=== PATIENT | female | born 1985 | race African-American/Black ===

== ENCOUNTER 2016-08-06 06:18 | Emergency (ER) | payer BC ==
[~2016-08-06] VITALS: Ht 157.5 cm; Wt 83.9 kg
[~2016-08-06 06:18] MED LIST: ENOX40DI3 SQ; HYDR-2666 PO; IBUP-1060 PO; MAGN296S PO; ONDA4TAB7 PO; PREN1TAB27 PO
[2016-08-06 06:20] VITALS: BP 109/71
--- NOTE | 2016-08-06 06:38 | PHYS DOC ---
Past Medical History Past Medical History: IBS, Ovarian Cyst, Other Additional Past Medical Histor: TUBAL X 2, SUBCHORONIC BLEED POSTERIOR TO PLACENTA Past Surgical History: No Surgical History Additional Past Surgical Histo: PENIEL CYST IN BRAIN Alcohol Use: None Drug Use: None Adult General Chief Complaint Chief Complaint: ANKLE PROBLEM HPI HPI Patient is a 31 year old Female who presents with right ankle pain. She had a box fall on her right ankle this morning approximately an hour prior to arrival. She states it hurts so bad she can't bear weight on it. She is not taking anything for the discomfort yet she just immediately had her carry her to the emergency department. Review of Systems Review of Systems Constitutional: Denies fever or chills [] Eyes: Denies change in visual acuity, redness, or eye pain [] HENT: Denies nasal congestion or sore throat [] Respiratory: Denies cough or shortness of breath [] Cardiovascular: No additional information not addressed in HPI [] GI: Denies abdominal pain, nausea, vomiting, bloody stools or diarrhea [] : Denies dysuria or hematuria [] Musculoskeletal: Denies back pain, positive for right ankle and foot pain Integument: Denies rash or skin lesions [] Neurologic: Denies headache, focal weakness or sensory changes [] Endocrine: Denies polyuria or polydipsia [] Current Medications Current Medications Current Medications Medications (Trade) Dose Ordered Sig/[facility] Start Time Stop Time Status Last Admin Dose Admin Acetaminophen/ Hydrocodone Bitart (Lortab 5/325) 2 tab 1X ONCE 08/06/16 07:00 08/06/16 07:01 DC 08/06/16 06:58 2 TAB Allergies Allergies Allergies Coded Allergies Type Severity Reaction Last Updated Verified No Known Drug Allergies 08/24/13 No Physical Exam Physical Exam Constitutional: Well developed, well nourished, no acute distress, non-toxic appearance. [] HENT: Normocephalic, atraumatic, bilateral external ears normal, oropharynx moist, no oral exudates, nose normal. [] Eyes: PERRLA, EOMI, conjunctiva normal, no discharge. [] Neck: Normal range of motion, no tenderness, supple, no stridor. [] Cardiovascular:Heart rate regular rhythm, no murmur [] Lungs & Thorax: Bilateral breath sounds clear to auscultation [] Abdomen: Bowel sounds normal, soft, no tenderness, no masses, no pulsatile masses. [] Skin: Warm, dry, no erythema, no rash. [] Back: No tenderness, no CVA tenderness. [] Extremities: Palpation of the right lateral malleolus and dorsum of the right foot, no cyanosis, no clubbing, ROM intact, no edema. [] Neurologic: Alert and oriented X 3, normal motor function, normal sensory function, no focal deficits noted. [] Psychologic: Affect normal, judgement normal, mood normal. [] Current Patient Data Vital Signs Vital Signs Date Time Temp Pulse Resp B/P Pulse Ox O2 Delivery O2 Flow Rate FiO2 08/06/16 06:58 98 Room Air 08/06/16 06:20 98.1 92 20 98.1 EKG EKG [] Radiology/Procedures Radiology/Procedures [facility] [address] [place] [address] IMAGING REPORT Signed PATIENT: NICK CARTWRIGHT ACCOUNT: [id number] : 1985 LOCATION: ER AGE: 31 SEX: F EXAM [id number] STATUS: REG ER ORD. PHYSICIAN: WILLIAM SEE MD REASON: pain over lateral malleous PROCEDURE: ANKLE RIGHT 3V; FOOT RIGHT 2V Right ankle, 3 views, 08/06/2016: History: Pain, injury No acute fracture or dislocation is identified. A well-defined bony density at the tip of the lateral malleolus appears old. IMPRESSION: No acute right ankle abnormality is detected. Right foot, 2 views, 08/06/2016: No fracture or dislocation is identified. There is minimal spurring at the talonavicular articulation. IMPRESSION: No acute bony abnormality is detected. DICTATED and SIGNED BY: DANAE REYES MD DATE: 08/06/16 0704 CC: WILLIAM SEE MD; TONY VERMA Jr, MD ~ Impressions: Right foot, ankle contusion Course & Med Decision Making Course & Med Decision Making Pertinent Labs and Imaging studies reviewed. (See chart for details) X-rays right foot and right ankle nonacute. We'll discharge with [place], crutches patient is to follow-up with orthostatic not better within 4-5 days. Return precautions given. She is agreeable plan being discharge in stable condition. Dragon Disclaimer Dragon Disclaimer This electronic medical record was generated, in whole or in part, using a voice recognition dictation system. Departure Departure Impression: Primary Impression: Ankle contusion Disposition: HOME, SELF-CARE Condition: STABLE Referrals: ALLA BELLO MD Patient Instructions: Foot Contusion, [id number] Additional Instructions: The x-ray did not show anything broken of your foot or ankle. He can take [place] as instructed for pain. [place] is a narcotic pain medicines a please do not regular car while taking it as it can impair judgment making sleepy. You can use crutches as needed. You should start feeling better over the next several days. If over 4-5 days or no better you will need to follow-up with orthopedic surgery. Please call their office to schedule an appointment. You can return back to emergency department for worsening pain, swelling or other concerns. Scripts Hydrocodone/Apap 5-325 ([place] 5-325 Tablet)1 Each Tablet1-2 Tab PO Q4-6HRS #14 TAB Prov:WILLIAM SEE MD 08/06/16 WILLIAM SEE MD Aug 06, 2016 06:38
[2016-08-06] MEDS ORDERED: HYDROCODONE/APAP 5/325MG TABLET. PO ONE (07:00)
--- NOTE | 2016-08-06 07:09 | RAD ---
Right ankle, 3 views, 08/06/2016: History: Pain, injury No acute fracture or dislocation is identified. A well-defined bony density at the tip of the lateral malleolus appears old. IMPRESSION: No acute right ankle abnormality is detected. Right foot, 2 views, 08/06/2016: No fracture or dislocation is identified. There is minimal spurring at the talonavicular articulation. IMPRESSION: No acute bony abnormality is detected.
[2016-08-06] MEDS ORDERED: HYDR-971 PO (07:17)
== END 2016-08-06 07:30 | disposition home or self-care (01) ==
LOC: ER 06:18
DX: S90.01XA Contusion of right ankle, initial encounter (principal); W20.8XXA Other cause of strike by thrown, projected or falling object, initial encounter; Y93.89 Activity, other specified; Y92.89 Other specified places as the place of occurrence of the external cause; Y99.8 Other external cause status
CPT/HCPCS: 73610; 73620; 99284

== ENCOUNTER 2016-12-08 07:52 | Emergency (ER) | payer BC ==
[~2016-12-08] VITALS: Ht 157.5 cm; Wt 83.9 kg
[~2016-12-08 07:52] MED LIST changes: -HYDR-2666 PO; +HYDR-2758 PO; +HYDR-971 PO; -MAGN296S PO; +MAGN296S9 PO
[2016-12-08 08:04] VITALS: BP 116/76
--- NOTE | 2016-12-08 08:07 | PHYS DOC ---
Past Medical History Past Medical History: IBS, Ovarian Cyst, Other Additional Past Medical Histor: TUBAL X 2, SUBCHORONIC BLEED POSTERIOR TO PLACENTA Past Surgical History: No Surgical History Additional Past Surgical Histo: PENIEL CYST IN BRAIN Alcohol Use: None Drug Use: None Adult General Chief Complaint Chief Complaint: SHORTNESS OF BREATH HPI HPI Patient is a 31 year old female with history of IBS and ovarian cyst who presents today with shortness of breath coughing, bilateral ear pain and nasal congestion that began a couple days ago. Patient denies any fever. Review of Systems Review of Systems Constitutional: see HPI Eyes: Denies change in visual acuity, redness, or eye pain [] HENT: nasal congestion and sore throat [] Respiratory: cough and shortness of breath [] Cardiovascular: No additional information not addressed in HPI [] GI: Denies abdominal pain, nausea, vomiting, bloody stools or diarrhea [] : Denies dysuria or hematuria [] Musculoskeletal: Denies back pain or joint pain [] Integument: Denies rash or skin lesions [] Neurologic: Denies headache, focal weakness or sensory changes [] Endocrine: Denies polyuria or polydipsia [] Current Medications Current Medications Current Medications Medications (Trade) Dose Ordered Sig/[facility] Start Time Stop Time Status Last Admin Dose Admin Albuterol/ Ipratropium (Duoneb) 3 ml 1X ONCE 12/08/16 08:15 12/08/16 08:16 DC 12/08/16 08:10 3 ML Prednisone (Prednisone) 60 mg 1X ONCE 12/08/16 08:15 12/08/16 08:16 DC 12/08/16 08:21 60 MG Allergies Allergies Allergies Coded Allergies Type Severity Reaction Last Updated Verified No Known Drug Allergies 08/24/13 No Physical Exam Physical Exam Constitutional: Well developed, well nourished, no acute distress, non-toxic appearance. [] HENT: Normocephalic, atraumatic, bilateral external ears normal, oropharynx moist, no oral exudates, nose normal. [] Eyes: PERRLA, EOMI, conjunctiva normal, no discharge. [] Neck: Normal range of motion, no tenderness, supple, no stridor. [] Cardiovascular:Heart rate regular rhythm, no murmur [] Lungs & Thorax: Wheezing noted to left upper lung lobe as well as bilateral upper lung lobes. Abdomen: Bowel sounds normal, soft, no tenderness, no masses, no pulsatile masses. [] Skin: Warm, dry, no erythema, no rash. [] Back: No tenderness, no CVA tenderness. [] Extremities: No tenderness, no cyanosis, no clubbing, ROM intact, no edema. [] Neurologic: Alert and oriented X 3, normal motor function, normal sensory function, no focal deficits noted. [] Psychologic: Affect normal, judgement normal, mood normal. [] Current Patient Data Vital Signs Vital Signs Date Time Temp Pulse Resp B/P (MAP) Pulse Ox O2 Delivery O2 Flow Rate FiO2 12/08/16 08:12 Room Air 12/08/16 08:04 98.4 100 18 100 98.4 EKG EKG [] Radiology/Procedures Radiology/Procedures []PROCEDURE: CHEST PA & LATERAL Indication cough chest tightness wheezing congestion shortness of air. Frontal and lateral views of the chest were obtained. No prior imaging of the chest is available. The heart and pulmonary vessels appear normal. The lungs are clear. There is no pleural fluid or pneumothorax. The visualized bony structures appear grossly intact. IMPRESSION: No acute or focal process seen in the chest DICTATED and SIGNED BY: ROWAN BENZ MD DATE: 12/08/16 0844 CC: CRISTINA LOOMIS APRN; TONY VERMA Jr, MD ~ Course & Med Decision Making Course & Med Decision Making Pertinent Labs and Imaging studies reviewed. (See chart for details) Patient is in the ED with complaints of coughing, shortness of breath, bilateral ear pain, sore throat. She was wheezing on arrival to the ED. Given a DuoNeb treatment and prednisone. Chest x-ray interpreted by radiologist is negative for any acute findings. Patient's symptoms are viral. Her lungs have cleared up. Discharged with albuterol inhaler, prednisone for 5 days, Tessalon Perles, Flonase, and ibuprofen. Instructed to follow-up with the PCP in 1-2 weeks. Provided return precautions and discharged in stable condition. Dragon Disclaimer Dragon Disclaimer This electronic medical record was generated, in whole or in part, using a voice recognition dictation system. Departure Departure Impression: Primary Impression: Upper respiratory infection Additional Impressions: Viral pharyngitis Bronchitis, acute Otalgia of both ears Disposition: HOME, SELF-CARE Condition: STABLE Referrals: TONY VERMA Jr, MD (PCP) Follow-up with the primary care doctor in 1-2 weeks Patient Instructions: Acute Bronchitis, [id number], Upper Respiratory Infection, Adult, Viral Pharyngitis Additional Instructions: You were seen with symptoms consistent with a viral illness. Take the prescribed medicines as ordered. Follow-up with your doctor in 1-2 weeks. Come back to the ED symptoms worsen. Scripts Fluticasone Propionate (Flonase Allergy Relief) 9.9 Ml [place].susp 2 SPRAYS NS DAILY, #1 BOTTLE Prov: CRISTINA LOOMIS APRN 12/08/16 Benzonatate (TESSALON PERLE) 100 Mg Capsule 1 CAP PO TID, #30 CAP Prov: CRISTINA LOOMIS APRN 12/08/16 Prednisone (PREDNISONE) 50 Mg Tablet 1 TAB PO DAILY, #5 TAB Prov: CRISTINA LOOMIS APRN 12/08/16 Albuterol Sulfate (Proair Respiclick) 90 Mcg Aer.pow.ba 1 PUFF IH PRN Q6HRS Y for SHORTNESS OF BREATH, #1 INHALER Prov: CRISTINA LOOMIS APRN 12/08/16 Problem Qualifiers Primary Impression: Upper respiratory infection URI type: unspecified URI Qualified Codes: J06.9 - Acute upper respiratory infection, unspecified Additional Impressions: Bronchitis, acute Bronchitis organism: unspecified organism Qualified Codes: J20.9 - Acute bronchitis, unspecified CRISTINA LOOMIS APRN Dec 08, 2016 08:07
[2016-12-08] MEDS ORDERED: predniSONE 20 MG TABLET PO ONE (08:15)
[2016-12-08] MEDS ORDERED: IPRATRPIUM/ALBUTEROL 0.5/2.5MG 3 ML NEBU. NEB ONE (08:15)
--- NOTE | 2016-12-08 08:48 | RAD ---
Indication cough chest tightness wheezing congestion shortness of air. Frontal and lateral views of the chest were obtained. No prior imaging of the chest is available. The heart and pulmonary vessels appear normal. The lungs are clear. There is no pleural fluid or pneumothorax. The visualized bony structures appear grossly intact. IMPRESSION: No acute or focal process seen in the chest
[2016-12-08] MEDS ORDERED: FLUT9.9S NS (09:18)
[2016-12-08] MEDS ORDERED: PROAIR RESPICL90 MCG IH (09:18)
[2016-12-08] MEDS ORDERED: BENZ100C PO (09:18)
[2016-12-08] MEDS ORDERED: PRED50TA PO (09:18)
[2016-12-08 10:32] LABS: NEGATIVE OBC STREP NEG; POSITIVE OBC STREP POS
== END 2016-12-08 09:38 | disposition home or self-care (01) ==
LOC: ER 07:52
DX: J20.9 Acute bronchitis, unspecified (principal); J06.9 Acute upper respiratory infection, unspecified; J02.8 Acute pharyngitis due to other specified organisms; B97.89 Other viral agents as the cause of diseases classified elsewhere; H92.03 Otalgia, bilateral; K58.9 Irritable bowel syndrome, unspecified
CPT/HCPCS: 71020; 87070; 87880; 94250; 94640; 99285; J7512; J7620

== ENCOUNTER 2016-12-13 19:51 | Emergency (ER) | payer BC ==
[~2016-12-13] VITALS: Ht 157.5 cm; Wt 83.9 kg
[~2016-12-13 19:51] MED LIST changes: +BENZ100C PO; +FLUT9.9S NS; +PRED50TA PO; +PROAIR RESPICL90 MCG IH
[2016-12-13 20:35] VITALS: BP 113/85
--- NOTE | 2016-12-13 20:56 | PHYS DOC ---
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 She states that she was using some machine tonight when the needle went through her right ring finger. She states that it did that a multiple times. Patient states she had difficulty trying to get the bleeding stopped. She states that this happened around 5:30 tonight. She states that she is on aspirin only. Patient states her last tetanus immunization was approximately one year ago. Patient denies any numbness or tingling to the tip of the finger. She denies taken anything for pain or discomfort. Patient states that she is right-hand dominant. Review of Systems Review of Systems Constitutional: Denies fever or chills [] Eyes: Denies change in visual acuity, redness, or eye pain [] HENT: Denies nasal congestion or sore throat [] Respiratory: Denies cough or shortness of breath [] Cardiovascular: No additional information not addressed in HPI [] GI: Denies abdominal pain, nausea, vomiting, bloody stools or diarrhea [] : Denies dysuria or hematuria [] Musculoskeletal: Denies back pain or joint pain [] Integument: Denies rash or skin lesions. Complaint of puncture wounds to the right ring finger. Neurologic: Denies headache, focal weakness or sensory changes [] Endocrine: Denies polyuria or polydipsia [] Current Medications Current Medications Current Medications Medications (Trade) Dose Ordered Sig/[facility] Start Time Stop Time Status Last Admin Dose Admin Acetaminophen/ Hydrocodone Bitart (Lortab 5/325) 1 tab 1X ONCE 12/13/16 21:15 12/13/16 21:16 DC 12/13/16 21:08 1 TAB Lidocaine/Sodium Bicarbonate (Buffered Lidocaine 1%) 20 ml 1X ONCE 12/13/16 21:15 12/13/16 21:16 DC 12/13/16 21:08 20 ML Allergies Allergies Allergies Coded Allergies Type Severity Reaction Last Updated Verified No Known Drug Allergies 08/24/13 No Physical Exam Physical Exam Constitutional: Well developed, well nourished, no acute distress, non-toxic appearance. [] HENT: Normocephalic, atraumatic, bilateral external ears normal, oropharynx moist, no oral exudates, nose normal. [] Eyes: PERRLA, EOMI, conjunctiva normal, no discharge. [] Neck: Normal range of motion, no tenderness, supple, no stridor. [] Cardiovascular:Heart rate regular rhythm Lungs & Thorax: No respiratory distress noted Skin: Warm, dry, no erythema, no rash. Puncture wounds noted to the right ring finger and the nail and nail bed area. Bleeding is currently controlled at this time. Patient does have good sensation to the tip of the finger. Back: No tenderness Extremities: No tenderness, no cyanosis, no clubbing, ROM intact, no edema. [] Neurologic: Alert and oriented X 3, normal motor function, normal sensory function, no focal deficits noted. [] Psychologic: Affect normal, judgement normal, mood normal. [] Current Patient Data Vital Signs Vital Signs Date Time Temp Pulse Resp B/P (MAP) Pulse Ox O2 Delivery O2 Flow Rate FiO2 12/13/16 21:08 20 100 12/13/16 20:35 98.4 65 Room Air 98.4 EKG EKG [] Radiology/Procedures Radiology/Procedures [] Course & Med Decision Making Course & Med Decision Making Pertinent Labs and Imaging studies reviewed. (See chart for details) X-rays were negative for any bony abnormalities, no foreign bodies noted in the finger. Site was injected with 2 mL of lidocaine 1% buffered. Patient's finger was soaked in Betadine. She does have a V-shaped area that appears to be avulsed in the nail. This avulsion is towards the base of the the nail. She will be provided with a Steri-Strip over the area once soaking his been completed. She was provided with signs and symptoms of infections and signs symptoms to return back to emergency department. Patient agrees with discharge instructions treatment regimens and follow-up recommendations. Dragon Disclaimer Dragon Disclaimer This electronic medical record was generated, in whole or in part, using a voice recognition dictation system. Departure Departure Impression: Primary Impression: Puncture wound of right ring finger without foreign body with damage to nail Disposition: 01 HOME, SELF-CARE Condition: STABLE Referrals: TONY VERMA Jr, MD (PCP) Patient Instructions: Puncture Wound, [id number] Additional Instructions: Your x-rays were negative for any bony abnormalities. No foreign bodies was noted in the finger. Tylenol or ibuprofen for pain and discomfort. Ice packs on 20 minutes off 20 minutes several times a day. Elevation as much as possible. Keep the area clean and dry. Clean the site twice day with soap and water and apply antibiotic ointment. Watch for signs and symptoms of infection: Redness, warmth, tenderness or any yellow/greenish drainage of a come from the site if this should occur you may do follow-up to primary care physician immediately. Otherwise follow-up to primary care physician as needed. Return back to emergency prior signs and symptoms of become worse KALEB LOYD APRN Dec 13, 2016 20:55
[2016-12-13] MEDS ORDERED: LIDOCAINE 1% / SOD BICARB 8.4% 20 ML VIAL. IJ ONE (21:15)
[2016-12-13] MEDS ORDERED: HYDROcodone/APAP 5/325MG 1 TAB TABLET PO ONE (21:15)
--- NOTE | 2016-12-14 07:15 | RAD ---
Indication: Injury to the right fourth finger. Time of exam 2112 hours. 3 views of the right hand were obtained. The metacarpals appear intact. The phalanges are intact. No fractures are seen. No definite radiopaque soft tissue foreign body is detected. Impression: No acute feature identified.
== END 2016-12-13 22:02 | disposition home or self-care (01) ==
LOC: ER 20:01
DX: S61.234A Puncture wound without foreign body of right ring finger without damage to nail, initial encounter (principal); E28.2 Polycystic ovarian syndrome; Z79.82 Long term (current) use of aspirin; Y28.8XXA Contact with other sharp object, undetermined intent, initial encounter; Y93.D2 Activity, sewing; Y99.8 Other external cause status; Y92.89 Other specified places as the place of occurrence of the external cause
CPT/HCPCS: 11730; 73140; 99284-25; 99285-25

== ENCOUNTER 2017-05-22 15:31 | Emergency (ER) | payer BC ==
[~2017-05-22] VITALS: Ht 157.5 cm; Wt 84.4 kg
[2017-05-22] MEDS ORDERED: IV NORMAL SALINE 1000ML BAG 1,000 ML IV SCH (16:11)
[2017-05-22] MEDS ORDERED: ONDANSETRON PF 4 MG/2 ML VIAL. IV ONE (16:15)
[2017-05-22] MEDS ORDERED: 0.9 % SODIUM CHLORIDE 10 ML DISP.SYRIN. IV PRN (16:15)
[2017-05-22] MEDS: HYDROmorphone 2 MG/ML VIAL IV/SQ PRN ×2 (16:18→17:04)
[2017-05-22 16:22] LABS: BILIRUBIN,URINE NEGATIVE (NEG); GLUCOSE,URINE NEGATIVE (NEG); NITRITE,URINE NEGATIVE (NEG); PH,URINE 5.5; PROTEIN,URINE NEGATIVE (NEG-TRACE); UROBILINOGEN,URINE 0.2 mg/dL (0.2 mg/dL)
[2017-05-22 16:22] LABS: BASO # 0.1 x10^3/uL (0.0-0.2); BASO % 1 % (0-3); EOS % 3 % (0-3); HEMATOCRIT 40.9 % (36.0-47.0); HEMOGLOBIN 13.6 g/dL (12.0-15.5); LYMPH % 29 % (24-48); MEAN CORPUSCULAR HEMOGLOBIN 30 pg (25-35); MEAN CORPUSCULAR HGB CONC 33 g/dL (31-37); MEAN CORPUSCULAR VOLUME 90 fL (79-100); MONO % 6 % (0-9); NEUT % 61 % (31-73); PLATELET COUNT 366 x10^3/uL (140-400); RED BLOOD COUNT 4.54 x10^6/uL (3.50-5.40); RED CELL DISTRIBUTION WIDTH 13.3 % (11.5-14.5); WHITE BLOOD COUNT 10.2 x10^3/uL (4.0-11.0)
[2017-05-22 16:31] LABS: BACTERIA,URINE MANY /HPF (0-FEW); RBC,URINE 0 /HPF (0-2); SQUAMOUS EPITHELIAL CELL,UR MANY /LPF
--- NOTE | 2017-05-22 16:32 | PHYS DOC ---
Past Medical History Past Medical History: Ovarian Cyst, Other Additional Past Medical Histor: AFLIB, PCOS, PENNEAL GLAND CYST, UMBILICAL HERNIA Past Surgical History: No Surgical History Additional Past Surgical Histo: PENIEL CYST IN BRAIN Alcohol Use: None Drug Use: None Adult General Chief Complaint Chief Complaint: ABDOMINAL PAIN HPI HPI She is a pleasant 31 year-old female with a known history and umbilical hernia presents with progressive abdominal pain after being struck in an umbilical hernia earlier today by her child. Patient was in sabianism today when he was she was attempting to mushroom picker her 3-year-old child who throwing a temper tantrum on the floor when the child kicked her in the abdomen around the area since that time patient's increasing localized pain around the vocal hernia with a localized swelling. Patient denies any vomiting, diarrhea, UTI symptoms but has had some nausea. She denies any recent travel outside the country, antibiotics, fevers, chills, back pain or possibly being . Patient is to note pain is not radiating to the back or to the chest. Patient's pain is worse with direct pressure over the abdominal umbilical hernia. Review of Systems Review of Systems Constitutional: Denies fever or chills [] Eyes: Denies change in visual acuity, redness, or eye pain [] HENT: Denies nasal congestion or sore throat [] Respiratory: Denies cough or shortness of breath [] Cardiovascular: No additional information not addressed in HPI [] GI: She mainly complains of abdominal pain with umbilical hernia with nausea but no vomiting no diarrhea no bloody stools or constipation. : Denies dysuria or hematuria [] Musculoskeletal: Denies back pain or joint pain [] Integument: Denies rash or skin lesions [] Neurologic: Denies headache, focal weakness or sensory changes [] Endocrine: Denies polyuria or polydipsia [] All other systems were reviewed and found to be within normal limits, except as documented in this note. Current Medications Current Medications Current Medications Medications (Trade) Dose Ordered Sig/Olivia Start Time Stop Time Status Last Admin Dose Admin Hydromorphone HCl (Dilaudid) 1 mg PRN Q15MIN PRN 05/22/17 16:15 05/23/17 16:14 05/22/17 17:04 1 MG Ondansetron HCl (Zofran) 4 mg 1X ONCE 05/22/17 16:15 05/22/17 16:16 DC 05/22/17 16:17 4 MG Sodium Chloride (Normal Saline Flush) 10 ml QSHIFT PRN 05/22/17 16:15 05/22/17 16:17 10 ML Allergies Allergies Allergies Coded Allergies Type Severity Reaction Last Updated Verified No Known Drug Allergies 08/24/13 No Physical Exam Physical Exam Vital signs located and recorded on the patient's chart there within normal limits. Constitutional: Well developed, well nourished, no acute distress, non-toxic appearance. [] HENT: Normocephalic, atraumatic, bilateral external ears normal, oropharynx moist, no oral exudates, nose normal. [] Eyes: PERRLA, EOMI, conjunctiva normal, no discharge. [] Neck: Normal range of motion, no tenderness, supple, no stridor. [] Cardiovascular:Heart rate regular rhythm, no murmur [] Lungs & Thorax: Bilateral breath sounds clear to auscultation [] Abdomen: Bowel sounds normal, soft, she has a mildly distended abdomen she is mildly obese there is tenderness around the umbilical hernia seems soft and easily reducible. Patient has no evidence of Loredo Min sign, no Nelson's or McBurney's point tenderness palpation on physical exam. Patient has no pulsatile masses noted. Skin: Warm, dry, no erythema, no rash. [] Back: No tenderness, no CVA tenderness. [] Extremities: No tenderness, no cyanosis, no clubbing, ROM intact, no edema. [] Neurologic: Alert and oriented X 3, normal motor function, normal sensory function, no focal deficits noted. [] Psychologic: She does seem somewhat anxious on exam but is consolable. Current Patient Data Vital Signs Vital Signs Date Time Temp Pulse Resp B/P (MAP) Pulse Ox O2 Delivery O2 Flow Rate FiO2 05/22/17 17:31 75 19 106/67 (80) 99 Room Air 05/22/17 15:51 98.0 98.0 Lab Values Laboratory Tests Test 05/22/17 15:40 05/22/17 15:49 05/22/17 15:53 Urine Collection Type Unknown Urine Color Dk yellow Urine Clarity Clear Urine pH 5.5 Urine Specific Naches >=1.030 Urine Protein Negative mg/dL (NEG-TRACE) Urine Glucose (UA) Negative mg/dL (NEG) Urine Ketones (Stick) >=80 mg/dL (NEG) Urine Blood Negative (NEG) Urine Nitrite Negative (NEG) Urine Bilirubin Negative (NEG) Urine Urobilinogen Dipstick 0.2 mg/dL (0.2 mg/dL) Urine Leukocyte Esterase Negative (NEG) Urine RBC 0 /HPF (0-2) Urine WBC 1-4 /HPF (0-4) Urine Squamous Epithelial Cells Many /LPF Urine Bacteria Many /HPF (0-FEW) Urine Mucus Marked /LPF POC Urine HCG, Qualitative Hcg negative (Negative) White Blood Count 10.2 x10^3/uL (4.0-11.0) Red Blood Count 4.54 x10^6/uL (3.50-5.40) Hemoglobin 13.6 g/dL (12.0-15.5) Hematocrit 40.9 % (36.0-47.0) Mean Corpuscular Volume 90 fL (79-100) Mean Corpuscular Hemoglobin 30 pg (25-35) Mean Corpuscular Hemoglobin Concent 33 g/dL (31-37) Red Cell Distribution Width 13.3 % (11.5-14.5) Platelet Count 366 x10^3/uL (140-400) Neutrophils (%) (Auto) 61 % (31-73) Lymphocytes (%) (Auto) 29 % (24-48) Monocytes (%) (Auto) 6 % (0-9) Eosinophils (%) (Auto) 3 % (0-3) Basophils (%) (Auto) 1 % (0-3) Neutrophils # (Auto) 6.2 x10^3uL (1.8-7.7) Lymphocytes # (Auto) 3.0 x10^3/uL (1.0-4.8) Monocytes # (Auto) 0.6 x10^3/uL (0.0-1.1) Eosinophils # (Auto) 0.3 x10^3/uL (0.0-0.7) Basophils # (Auto) 0.1 x10^3/uL (0.0-0.2) Sodium Level 139 mmol/L (136-145) Potassium Level 3.6 mmol/L (3.5-5.1) Chloride Level 103 mmol/L (98-107) Carbon Dioxide Level 25 mmol/L (21-32) Anion Gap 11 (6-14) Blood Urea Nitrogen 13 mg/dL (7-20) Creatinine 0.7 mg/dL (0.6-1.0) Estimated GFR (Cockcroft-Gault) 116.6 Glucose Level 111 mg/dL (70-99) H Calcium Level 9.4 mg/dL (8.5-10.1) Total Bilirubin 0.9 mg/dL (0.2-1.0) Direct Bilirubin 0.2 mg/dL (0.0-0.2) Aspartate Amino Transferase (AST) 25 U/L (15-37) Alanine Aminotransferase (ALT) 48 U/L (14-59) Alkaline Phosphatase 65 U/L (46-116) Total Protein 8.1 g/dL (6.4-8.2) Albumin 4.3 g/dL (3.4-5.0) Laboratory Tests 05/22/17 15:53 Laboratory Tests 05/22/17 15:53 EKG EKG [] Radiology/Procedures Radiology/Procedures [] IMAGING REPORT Signed PATIENT: NICK CARTWRIGHT ACCOUNT: [id number] : 1985 LOCATION: ER AGE: 31 SEX: F EXAM STATUS: REG ER ORD. PHYSICIAN: JOHNSON GARCIA MD REASON: abdominal pain PROCEDURE: CT ABDOMEN PELVIS WO CONTRAST CT Abdomen; CT Pelvis without contrast Clinical Indication: Abdominal pain, umbilical hernia COMPARISON: CT abdomen pelvis dated 04/29/2017 TECHNIQUE: Multiple contiguous axial images were obtained throughout the abdomen, and pelvis without the use of IV contrast. Axial images were reformatted into coronal and sagittal planes. FINDINGS: Abdomen findings: Evaluation of solid abdominal viscera is limited without the use of IV contrast. However, the liver, gallbladder spleen, pancreas, and adrenal glands are unremarkable. Unchanged punctate nonobstructive left renal calculi. The kidneys are otherwise unremarkable. No hydronephrosis. There is no significant mesenteric or retroperitoneal adenopathy identified, though evaluation is limited without intravenous contrast. There is no evidence of free intraperitoneal fluid or pneumoperitoneum. Visualized portions of the bowel are grossly unremarkable. Normal appendix. Pelvis findings: The bladder is underdistended limiting evaluation. Normal uterus and ovaries. There is no significant pelvic ascites. No significant iliac or inguinal adenopathy is identified. No acute osseous abnormality. No significant change in small fat-containing periumbilical hernia. IMPRESSION: 1. Unchanged nonobstructive punctate left renal calculi. No obstructive uropathy. 2. Unchanged small fat-containing periumbilical hernia. PQRS Compliance Statement: One or more of the following individualized dose reduction techniques were utilized for this examination: 1. Automated exposure control 2. Adjustment of the mA and/or kV according to patient size 3. Use of iterative reconstruction technique Electronically signed by: Erickson Michaels MD (05/22/2017 5:39 PM) [facility] [id number] DICTATED and SIGNED BY: ERICKSON MICHAELS MD DATE: 05/22/17 6535 CC: JOHNSON GARCIA MD; NO PCP ~ Course & Med Decision Making Course & Med Decision Making Pertinent Labs and Imaging studies reviewed. (See chart for details) []My abdominal pain differential includes but not limited to ectopic , UTI, pyonephritis, cholecystitis, cholelithiasis, pancreatitis, appendicitis, small bowel obstruction, large bowel obstruction, diverticulosis, Diverticulum, intussusception, volvulus, irritable bowel disease, incarcerated hernia, Crohn' s or ulcerative colitis, considered upon arrival Time is now 5 PM patient is resting completely waiting the results of her CAT scan. Patient tells me that their symptoms given during CC are improved. We reviewed labs and radiology reports with patient at bedside. It is now 6 PM I reviewed the CAT scan with the patient the bedside has no evidence of incarceration or entrapment of her hernia. There is some mild fat within the hernia itself but no evidence of fat stranding or evidence of inflammation. There is no other intra-abdominal pathology causing her symptoms. Patient's CBC, CMP and urinalysis are unremarkable. Patient's urinalysis is considerably Contaminant with epithelial cells and she is asymptomatic when he comes to UTI symptoms. Dragon Disclaimer Dragon Disclaimer This electronic medical record was generated, in whole or in part, using a voice recognition dictation system. Departure Departure Impression: Primary Impression: Abdominal pain Additional Impressions: Umbilical hernia Abdominal wall contusion Disposition: HOME, SELF-CARE Referrals: NO PCP (PCP) Patient Instructions: Abdominal Pain, Prolapse of the Umbilical Cord Additional Instructions: discharge: I've spoken with the patient and/or caregivers. I've explained the patient's condition, diagnosis and treatment plan based on information available to me at this time. I've answered the patient's and/or caregivers questions and addressed any concerns. The patient and/or caregivers have a good understanding the patient's diagnosis, condition and treatment plan as can be expected at this point. Vital signs have been stabilized. The patient's condition is stable for discharge from the emergency department. The patient will pursue further outpatient evaluation with her primary care provider or other designated consulting physician as outlined in the discharge instructions. Patient and/or caregivers are agreeable to this plan of care and follow-up instructions have been explained in detail. The patient and/or caregivers have received these instructions in written format and expressed understanding of these discharge instructions. The patient and her caregivers are aware that if any significant change in condition or worsening of symptoms should prompt him to immediately return to this of the closest emergency department. If an emergent department is not readily available I would encourage him to call 911. Scripts Hydrocodone Bit/Acetaminophen (HYDROCODONE-APAP 5-325 ) 1 Each Tablet 1-2 TAB PO PRN Q6HRS Y for PAIN for 5 Days, #10 TAB 0 Refills Prov: JOHNSON GARCIA MD 05/22/17 Problem Qualifiers JOHNSON GARCIA MD May 22, 2017 16:32
[2017-05-22 16:33] LABS: CALCIUM 9.4 mg/dL (8.5-10.1); CREATININE 0.7 mg/dL (0.6-1.0); GFR 116.6; POTASSIUM 3.6 mmol/L (3.5-5.1)
[2017-05-22 16:39] LABS: ALBUMIN 4.3 g/dL (3.4-5.0); DIRECT BILIRUBIN 0.2 mg/dL (0.0-0.2); TOTAL BILIRUBIN 0.9 mg/dL (0.2-1.0); TOTAL PROTEIN 8.1 g/dL (6.4-8.2)
[2017-05-22 17:31] VITALS: BP 106/67
--- NOTE | 2017-05-22 17:42 | RAD ---
CT Abdomen; CT Pelvis without contrast Clinical Indication: Abdominal pain, umbilical hernia COMPARISON: CT abdomen pelvis dated 04/29/2017 TECHNIQUE: Multiple contiguous axial images were obtained throughout the abdomen, and pelvis without the use of IV contrast. Axial images were reformatted into coronal and sagittal planes. FINDINGS: Abdomen findings: Evaluation of solid abdominal viscera is limited without the use of IV contrast. However, the liver, gallbladder spleen, pancreas, and adrenal glands are unremarkable. Unchanged punctate nonobstructive left renal calculi. The kidneys are otherwise unremarkable. No hydronephrosis. There is no significant mesenteric or retroperitoneal adenopathy identified, though evaluation is limited without intravenous contrast. There is no evidence of free intraperitoneal fluid or pneumoperitoneum. Visualized portions of the bowel are grossly unremarkable. Normal appendix. Pelvis findings: The bladder is underdistended limiting evaluation. Normal uterus and ovaries. There is no significant pelvic ascites. No significant iliac or inguinal adenopathy is identified. No acute osseous abnormality. No significant change in small fat-containing periumbilical hernia. IMPRESSION: 1. Unchanged nonobstructive punctate left renal calculi. No obstructive uropathy. 2. Unchanged small fat-containing periumbilical hernia. PQRS Compliance Statement: One or more of the following individualized dose reduction techniques were utilized for this examination: 1. Automated exposure control 2. Adjustment of the mA and/or kV according to patient size 3. Use of iterative reconstruction technique Electronically signed by: Erickson Michaels MD (05/22/2017 5:39 PM) [facility]
[2017-05-22] MEDS ORDERED: HYDR-2758 PO (18:03)
== END 2017-05-22 18:11 | disposition home or self-care (01) ==
LOC: ER 15:31
DX: S30.1XXA Contusion of abdominal wall, initial encounter (principal); K42.9 Umbilical hernia without obstruction or gangrene; E28.2 Polycystic ovarian syndrome; W50.0XXA Accidental hit or strike by another person, initial encounter; Y93.89 Activity, other specified; Y92.22 Religious institution as the place of occurrence of the external cause; Y99.8 Other external cause status
CPT/HCPCS: 36415; 74176; 80048; 80076; 81001; 81025; 85025; 87086; 96361; 96374; 96375; 96376; 99285; J1170; J2405; J7030; 96372

== ENCOUNTER 2017-06-01 08:03 | Day surgery (SDC) | payer BC ==
[~2017-06-01] VITALS: Ht 157.5 cm; Wt 82.6 kg
[~2017-06-01 08:03] MED LIST changes: +HYDROmorphone 2 MG/ML VIAL IV PRN; +IV RINGERS,LACTATED 1000ML 1,000 ML IV SCH; +LIDOCAINE 1% PF 2 ML VIAL. ID PRN; +MORPHINE SULFATE 2 MG/ML DISP.SYRIN. IV PRN; +ONDANSETRON PF 4 MG/2 ML VIAL. IV PRN; +PROCHLORPERAZINE 10 MG/2 ML VIAL. IV PRN; +ceFAZolin 2GM PREMIX 2 GM/50 ML BAG IV ONE; +fentaNYL PF VIAL 100 MCG/2 ML VIAL IV PRN
[2017-06-01 08:30] LABS: NEG OBC UR NEG; POS OBC UR POS
[2017-06-01 08:51] LABS: BASO # 0.1 x10^3/uL (0.0-0.2); BASO % 1 % (0-3); EOS % 4 % (0-3); HEMATOCRIT 41.2 % (36.0-47.0); HEMOGLOBIN 13.6 g/dL (12.0-15.5); LYMPH # 1.8 x10^3/uL (1.0-4.8); LYMPH % 22 % (24-48); MEAN CORPUSCULAR HEMOGLOBIN 30 pg (25-35); MEAN CORPUSCULAR HGB CONC 33 g/dL (31-37); MEAN CORPUSCULAR VOLUME 90 fL (79-100); MONO % 10 % (0-9); NEUT % 63 % (31-73); PLATELET COUNT 326 x10^3/uL (140-400); RED BLOOD COUNT 4.57 x10^6/uL (3.50-5.40); RED CELL DISTRIBUTION WIDTH 13.3 % (11.5-14.5); WHITE BLOOD COUNT 8.2 x10^3/uL (4.0-11.0)
[2017-06-01 08:57] LABS: ALBUMIN 4.2 g/dL (3.4-5.0); CALCIUM 8.5 mg/dL (8.5-10.1); CREATININE 0.8 mg/dL (0.6-1.0); POTASSIUM 4.1 mmol/L (3.5-5.1)
[2017-06-01] MEDS ORDERED: fentaNYL PF VIAL 100 MCG/2 ML VIAL ONE (09:38)
[2017-06-01] MEDS ORDERED: PROPOFOL 20 ML IV ONE (09:38)
[2017-06-01] MEDS ORDERED: ONDANSETRON PF 4 MG/2 ML VIAL. ONE (09:38)
[2017-06-01] MEDS ORDERED: ROCURONIUM 50 MG/5 ML VIAL. ONE (09:38)
[2017-06-01] MEDS ORDERED: MIDAZOLAM HCL/PF 2 MG/2 ML VIAL. ONE (09:38)
[2017-06-01] MEDS ORDERED: LIDOCAINE 2% PF Vial for OR 5 ML VIAL. ONE (09:38)
[2017-06-01] MEDS ORDERED: SEVOFLURANE 61 TO 120 MINUTES. IH ONE (09:39)
[2017-06-01] MEDS ORDERED: KETOROLAC 30 MG/ML INJ FOR OR. INJ ONE (09:39)
[2017-06-01] MEDS ORDERED: BUPIVACAINE MPF 0.5% 30 ML VIAL. ONE (10:50)
--- NOTE | 2017-06-01 11:48 | PDOC ---
BRIEF OPERATIVE NOTE Date: Jun 01, 2017 Pre-Op Diagnosis incarcerated umbilical hernia Post-Op Diagnosis same Procedure Performed primary repair Surgeon Loi Anesthesia Type: General Blood Loss 25cc IV Fluid 850cc Specimens Obtained hernia sack Findings incarcerated fat through a small defect Complications none PETEY ESPINOSA MD Jun 01, 2017 11:48
--- NOTE | 2017-06-01 11:49 | DISCH ---
DISCHARGE INSTRUCTIONS Condition on Discharge Condition on Discharge: Stable Activity After Discharge Activity Instructions for Disc: Activity as tolerated, Avoid exertion Lifting Instructions after Dis: No heavy lifting Diet after Discharge Diet after Discharge: Regular Wound Incision Care Wound/Incision Care: Ice to area for comfort Other wound/incision instructi: abdominal binderportia shower Tuesday Follow-Up Follow up with: malachi Monsivais LEE V MD Jun 01, 2017 11:49
[2017-06-01] MEDS ORDERED: OXYC-323 PO (12:13)
[2017-06-01] MEDS ORDERED: SENN1TAB70 PO (12:14)
[2017-06-01] MEDS ORDERED: oxyCODONE/APAP 5/325 1 TAB TABLET ONE (12:19)
[2017-06-01] MEDS ORDERED: oxyCODONE/APAP 5/325 1 TAB TABLET PO ONE (12:30)
[2017-06-01 13:08] VITALS: BP 103/62
--- NOTE | 2017-06-02 12:40 | OP ---
DATE OF SURGERY: 06/01/2017 PREOPERATIVE DIAGNOSIS: Incarcerated umbilical hernia. POSTOPERATIVE DIAGNOSIS: Incarcerated umbilical hernia. PROCEDURE: Primary repair. SURGEON: Steven Espinosa MD. ANESTHESIA: General. ESTIMATED BLOOD LOSS: 25 mL. INTRAVENOUS FLUID: 850 mL. INDICATIONS: The patient is a 31-year-old with pain and fullness in the umbilical area here for repair. DESCRIPTION OF PROCEDURE: The patient brought to the operating suite, given a general anesthetic and the abdomen was prepped and draped in usual sterile fashion. An infraumbilical incision was infiltrated with 0.5% Marcaine plain, incised and dissection carried down to the anterior sheath. The hernia was encircled and a Darell drain placed around it. The umbilical skin was reflected off the hernia and the incarcerated contents were reduced. Hernia sac was excised. The small fascial defect was repaired with interrupted inverted [id number] 0 PDS sutures. A second row of 0 Vicryl was placed to reinforce the repair. Wound was checked for hemostasis and when present and a correct sponge count was obtained. The umbilical skin was tacked to the underlying repair with 3-0 Vicryl. SubQ approximated with 3-0 Vicryl, skin closed with a subcuticular 4-0 Monocryl. Steri-Strips and sterile dressing applied. The patient awakened from her anesthetic, placed in an abdominal binder and taken to the postoperative area in stable condition. STEVEN ESPINOSA MD DR: DEBBY/lester JOB#: [id number] / [id number]
--- NOTE | 2017-06-02 16:50 | PATHOLOGY ---
PATHOLOGY REPORT * * * * * * * * FINAL DIAGNOSIS: Segment of mesothelial-lined fibromembranous and fibroadipose tissue, umbilical hernia repair: - Hernia sac. (JPM:[email or web address]; 06/02/2017) REPORT ELECTRONICALLY SIGNED BY: Gumaro Thorpe M.D. DATE/TIME: 06/02/2017 16:49 * * * * * * * * GROSS PATHOLOGY: Received in formalin labeled "Yudith Cartwright, umbilical hernia," is a piece of fibromembranous tissue measuring 3.4 x 2.2 x 1.5 cm. No nodules or lesions are identified. Neonatal Icu Coordinator tissue is submitted in cassette A1. (TSD; 06/01/2017) INITIAL CPT CODE(S): A; 84085 Professional services performed by [facility] [place] [address] Technical services performed by [facility] at [address] [place] [address]. SPECIMEN(S) RECEIVED: A.Umbilical hernia sac CLINICAL HISTORY: Incarcerated umbilical hernia PATIENT: YUDITH CARTWRIGHT /AGE: 12 1985 (Age: 31) PATIENT #: [id number] ALT CASE #: SPECIMEN COLLECTION DATE: 06/01/2017 SPECIMEN RECEIVED DATE: 06/01/2017 [facility] - [address] [place] [address] - PHONE: [phone] * * * END OF REPORT * * *
== END 2017-06-01 13:13 | disposition home or self-care (01) ==
LOC: SURG 08:03 → MERGE 10:15 → SURG 13:13
PROVIDERS: ATTEND Surgery
DX: K42.0 Umbilical hernia with obstruction, without gangrene (principal); I95.9 Hypotension, unspecified; E66.9 Obesity, unspecified; Z68.33 Body mass index [BMI] 33.0-33.9, adult; D27.9 Benign neoplasm of unspecified ovary; M19.90 Unspecified osteoarthritis, unspecified site
CPT/HCPCS: 36415; 49587; 80048; 81025; 82040; 85025; C1769; J0690; J0780; J1885; J2250; J2405; J2704; J3010; J3490; 88302; J2001

== ENCOUNTER 2017-12-05 14:08 | Emergency (ER) | payer OTHER, BC ==
[2017-12-05] MEDS: predniSONE 10 MG TABLET PO (14:36)
[2017-12-05] MEDS: HYDROcodone/APAP 5/325MG 1 TAB TABLET PO (14:37)
== END 2017-12-05 15:31 | disposition home or self-care (01) ==
LOC: ER 14:08
DX: M77.8 Other enthesopathies, not elsewhere classified (principal); I48.91 Unspecified atrial fibrillation
CPT/HCPCS: 93971; 99284-25; J7512

== ENCOUNTER 2018-06-07 19:53 | Observation (INO) | payer BC ==
[~2018-06-07] VITALS: Ht 157.5 cm; Wt 87.5 kg
[~2018-06-07 19:53] MED LIST changes: +ACET325T9 PO; +ASPI-630 PO; +DOCU-109 PO; -HYDR-2758 PO; +HYDR-2761 PO; +HYDR-3164 PO; -HYDR-971 PO; -HYDROmorphone 2 MG/ML VIAL IV PRN; +IBUP-1027 PO; -IV RINGERS,LACTATED 1000ML 1,000 ML IV SCH; -LIDOCAINE 1% PF 2 ML VIAL. ID PRN; +METH-37 PO; -MORPHINE SULFATE 2 MG/ML DISP.SYRIN. IV PRN; -ONDANSETRON PF 4 MG/2 ML VIAL. IV PRN; +OXYC1TAB15 PO; +PRED20TA PO; -PROCHLORPERAZINE 10 MG/2 ML VIAL. IV PRN; +SENN1TAB70 PO; +TRAM50TA PO; -ceFAZolin 2GM PREMIX 2 GM/50 ML BAG IV ONE; -fentaNYL PF VIAL 100 MCG/2 ML VIAL IV PRN
[2018-06-07] MEDS ORDERED: MORPHINE SULFATE 10 MG/ML VIAL. IM ONE (20:15)
[2018-06-07] MEDS ORDERED: ONDANSETRON PF 4 MG/2 ML VIAL. IV ONE (20:15)
[2018-06-07 20:25] LABS: BASO # 0.1 x10^3/uL (0.0-0.2); BASO % 1 % (0-3); EOS # 0.9 x10^3/uL (0.0-0.7); EOS % 10 % (0-3); HEMATOCRIT 33.8 % (36.0-47.0); HEMOGLOBIN 11.4 g/dL (12.0-15.5); LYMPH # 2.5 x10^3/uL (1.0-4.8); LYMPH % 28 % (24-48); MEAN CORPUSCULAR HEMOGLOBIN 31 pg (25-35); MEAN CORPUSCULAR HGB CONC 34 g/dL (31-37); MEAN CORPUSCULAR VOLUME 91 fL (79-100); MONO # 0.6 x10^3/uL (0.0-1.1); MONO % 7 % (0-9); NEUT # 4.9 x10^3uL (1.8-7.7); NEUT % 54 % (31-73); PLATELET COUNT 372 x10^3/uL (140-400); RED BLOOD COUNT 3.72 x10^6/uL (3.50-5.40); RED CELL DISTRIBUTION WIDTH 13.2 % (11.5-14.5); WHITE BLOOD COUNT 9.1 x10^3/uL (4.0-11.0)
[2018-06-07 20:36] LABS: CALCIUM 9.2 mg/dL (8.5-10.1); CREATININE 0.8 mg/dL (0.6-1.0); GFR 99.4; POTASSIUM 3.8 mmol/L (3.5-5.1)
[2018-06-07 20:42] LABS: ALBUMIN 3.7 g/dL (3.4-5.0); ALBUMIN/GLOBULIN RATIO 0.9 (1.0-1.7); TOTAL BILIRUBIN 0.3 mg/dL (0.2-1.0); TOTAL PROTEIN 7.8 g/dL (6.4-8.2)
[2018-06-07] MEDS ORDERED: fentaNYL PF VIAL 100 MCG/2 ML VIAL IV ONE (21:00)
--- NOTE | 2018-06-07 21:38 | PHYS DOC ---
Past Medical History Past Medical History: Depression, Hypotension, Ovarian Cyst, Pneumonia Additional Past Medical Histor: ANTIPHOSPHOLIPID ANTIBODY DISORDER, PINEAL GLAND CYST, 5 MISCARRIAGES, Past Surgical History: Other Additional Past Surgical Histo: HERNIA SX Alcohol Use: Rarely Drug Use: None Adult General Chief Complaint Chief Complaint: POST-OP PROBLEM HPI HPI Patient is a 32 year old -[place] who is s/p hysterectomy with bladder sling several days ago who presents with acute onset left groin pain radiating to left medial thigh. Pain started earlier this morning. Scrubbed moderate to severe and is not relieved with prescription pain medication. It is worse with ambulation movement and palpation.[] Review of Systems Review of Systems Review symptoms as per history of present illness. All other review symptoms All other systems were reviewed and found to be within normal limits, except as documented in this note. Current Medications Current Medications Current Medications Medications (Trade) Dose Ordered Sig/Olivia Start Time Stop Time Status Last Admin Dose Admin Fentanyl Citrate (Fentanyl 2ml Vial) 50 mcg 1X ONCE 06/07/18 21:00 06/07/18 21:01 DC 06/07/18 20:55 50 MCG Morphine Sulfate (Morphine Sulfate) 5 mg 1X ONCE 06/07/18 20:15 06/07/18 20:16 DC 06/07/18 20:23 5 MG Ondansetron HCl (Zofran) 4 mg 1X ONCE 06/07/18 20:15 06/07/18 20:16 DC 06/07/18 20:22 4 MG Allergies Allergies Allergies Coded Allergies Type Severity Reaction Last Updated Verified shellfish derived Allergy Severe THROAT SWELLING 06/01/18 Yes Physical Exam Physical Exam Constitutional: Well developed, well nourished, discomfort secondary to pain.. [ ] HENT: Normocephalic, atraumatic, bilateral external ears normal, oropharynx moist, no oral exudates, nose normal. [] Eyes: PERRLA, EOMI, conjunctiva normal, no discharge. [] Neck: Normal range of motion, no tenderness, supple, no stridor. [] Cardiovascular:Heart rate regular rhythm, no murmur [] Lungs & Thorax: Bilateral breath sounds clear to auscultation [] Abdomen: Bowel sounds normal, soft, minimal pelvic/lower abdominal pain tenderness[] Skin: Warm, dry, no erythema, no rash. [] Back: No tenderness, no CVA tenderness. [] Extremities: Left inguinal groin pain, no palpable hernia, mass, swelling or bruising appreciated. Tenderness to palpation. Femoral pulses 3+ and symmetric.. [] Neurologic: Alert and oriented X 3, normal motor function, normal sensory function, no focal deficits noted. [] Psychologic: Affect normal, judgement normal, mood normal. [] Current Patient Data Vital Signs Vital Signs Date Time Temp Pulse Resp B/P (MAP) Pulse Ox O2 Delivery O2 Flow Rate FiO2 06/07/18 21:37 62 20 109/58 (75) 99 Room Air 06/07/18 20:09 98.5 98.5 Lab Values Laboratory Tests Test 06/07/18 20:16 White Blood Count 9.1 x10^3/uL (4.0-11.0) Red Blood Count 3.72 x10^6/uL (3.50-5.40) Hemoglobin 11.4 g/dL (12.0-15.5) L Hematocrit 33.8 % (36.0-47.0) L Mean Corpuscular Volume 91 fL (79-100) Mean Corpuscular Hemoglobin 31 pg (25-35) Mean Corpuscular Hemoglobin Concent 34 g/dL (31-37) Red Cell Distribution Width 13.2 % (11.5-14.5) Platelet Count 372 x10^3/uL (140-400) Neutrophils (%) (Auto) 54 % (31-73) Lymphocytes (%) (Auto) 28 % (24-48) Monocytes (%) (Auto) 7 % (0-9) Eosinophils (%) (Auto) 10 % (0-3) H Basophils (%) (Auto) 1 % (0-3) Neutrophils # (Auto) 4.9 x10^3uL (1.8-7.7) Lymphocytes # (Auto) 2.5 x10^3/uL (1.0-4.8) Monocytes # (Auto) 0.6 x10^3/uL (0.0-1.1) Eosinophils # (Auto) 0.9 x10^3/uL (0.0-0.7) H Basophils # (Auto) 0.1 x10^3/uL (0.0-0.2) Sodium Level 140 mmol/L (136-145) Potassium Level 3.8 mmol/L (3.5-5.1) Chloride Level 104 mmol/L (98-107) Carbon Dioxide Level 25 mmol/L (21-32) Anion Gap 11 (6-14) Blood Urea Nitrogen 16 mg/dL (7-20) Creatinine 0.8 mg/dL (0.6-1.0) Estimated GFR (Cockcroft-Gault) 99.4 BUN/Creatinine Ratio 20 (6-20) Glucose Level 104 mg/dL (70-99) H Calcium Level 9.2 mg/dL (8.5-10.1) Total Bilirubin 0.3 mg/dL (0.2-1.0) Aspartate Amino Transferase (AST) 22 U/L (15-37) Alanine Aminotransferase (ALT) 43 U/L (14-59) Alkaline Phosphatase 57 U/L (46-116) Total Protein 7.8 g/dL (6.4-8.2) Albumin 3.7 g/dL (3.4-5.0) Albumin/Globulin Ratio 0.9 (1.0-1.7) L Laboratory Tests 06/07/18 20:16 Laboratory Tests 06/07/18 20:16 EKG EKG [] Radiology/Procedures Radiology/Procedures [Left lower extremity: Venous Doppler ultrasound: No finding of DVT. CT abdomen and pelvis: High-density pelvic free fluid, correlate with surgical history, nonspecific stranding about the hysterectomy site, correlate with surgical intervention per radiology report.] Course & Med Decision Making Course & Med Decision Making Pertinent Labs and Imaging studies reviewed. (See chart for details) [Left-sided pelvic/groin pain radiating to left anterior thigh. Pain is disproportionate to exam. Lab work, ultrasound and CT imaging performed. Nonspecific findings on CT scan. Patient requiring repeat doses of narcotic pain medication in the emergency department. IV Rocephin given for treatment of urinary tract infection. Dr. Frias to admit.] Dragon Disclaimer Dragon Disclaimer This electronic medical record was generated, in whole or in part, using a voice recognition dictation system. Departure Departure Impression: Primary Impression: Groin pain Additional Impression: Urinary tract infection Disposition: ADMITTED INPATIENT Admitting Physician: Other (Dr. Frias) Condition: IMPROVED Referrals: MARVA MITTAL MD (PCP) Problem Qualifiers EDELDIANA BOWMAN Jun 07, 2018 21:38
--- NOTE | 2018-06-07 22:32 | RAD ---
Examination: VENOUS LOWER EXTREMITY LEFT History: LT GROIN AND UPPER THIGH PAIN PST HYST 06/01/18

NO EVIDENCE OF DVT Comparison/Correlation: None Findings: Left lower extremity venous duplex ultrasound exam was performed. Compression and augmentation utilized. Spectral, color Doppler, and grayscale imaging was performed. Left common femoral, superficial femoral, greater saphenous, profunda femoris, peroneal, and posterior tibial veins are unremarkable. Normal compressibility and phasicity. Impression: No left lower extremity DVT. Electronically signed by: Jose R Devine MD (06/07/2018 10:29 PM) [facility]
[2018-06-07] MEDS ORDERED: KETOROLAC 30 MG/ML VIAL. IV ONE (23:00)
[2018-06-07] MEDS ORDERED: CONTRAST GIVEN. MC PRN (23:00)
[2018-06-07] MEDS ORDERED: IOHEXOL 300 MG/ML 100ML VIAL. IV ONE (23:15)
[2018-06-07 23:19] LABS: BILIRUBIN,URINE NEGATIVE (NEG); CLARITY,URINE CLEAR; COLOR,URINE YELLOW; NITRITE,URINE NEGATIVE (NEG); PH,URINE 6.5; PROTEIN,URINE NEGATIVE (NEG-TRACE)
[2018-06-07 23:27] LABS: BACTERIA,URINE MODERATE /HPF (0-FEW); SQUAMOUS EPITHELIAL CELL,UR MOD /LPF; WBC,URINE >40 /HPF (0-4)
--- NOTE | 2018-06-07 23:39 | RAD ---
Examination: CT ABD PELV W/ IV CONTRST ONLY History: LLQ AND LT GROIN PAIN S/P TOTAL HYSTERECTOMY W BLADDER SLING, [id number], PRIORS SENT Comparison/Correlation: 05/22/2017 CT abdomen and pelvis without contrast, 04/29/2017 CT abdomen and pelvis with IV contrast Findings: Axial images of the abdomen and pelvis were obtained following IV contrast. Oral contrast was not administered for this exam. Sagittal and coronal reformatted images provided. Visualized lung bases are clear. Fatty infiltration of the liver is present. Spleen, pancreas, adrenal glands, and kidneys are normal. Gallbladder fossa is normal. Moderate quantity of stool in the colon is present. Small amount of pelvic free fluid is of slightly high density. Urinary bladder is mostly decompressed. Bilateral adnexal follicles are present. Hysterectomy noted. Subtle stranding about hysterectomy site noted. No suspicious collection. Appendix is normal. No bowel obstruction or extraluminal gas. Groin regions bilaterally are unremarkable. No enlarged lymph nodes. Bilateral sacroiliac joint degenerative sclerosis and vacuum phenomenon is present. Impression: Ovarian follicles are physiologic in appearance. Slightly high density pelvic free fluid. Correlate with surgical history. This may represent old hemorrhagic fluid or complex there is fluid. Hysterectomy noted. Nonspecific subtle stranding about the hysterectomy site. Correlate with history of surgical intervention. Electronically signed by: Jose R Devine MD (06/07/2018 11:35 PM) [facility]
[2018-06-08] MEDS ORDERED: ONDANSETRON PF 4 MG/2 ML VIAL. IV PRN
[2018-06-08] MEDS: KETOROLAC 15 MG/ML VIAL. IV SCH ×2 (00:05→05:48)
[2018-06-08] MEDS: oxyCODONE/APAP 5/325 1 TAB TABLET PO SCH ×3 (00:06→08:13)
[2018-06-08] MEDS ORDERED: IV NORMAL SALINE 1000ML BAG 1,000 ML IV SCH (00:15)
[2018-06-08] MEDS ORDERED: cefTRIAXone IV Push 1 GM VIAL. IVP ONE ×2 (00:30→12:00)
[2018-06-08 00:31] VITALS: BP 127/71
[2018-06-08] MEDS: HYDROmorphone 2 MG/ML VIAL IV PRN ×4 (00:31→13:15)
[2018-06-08 03:19] VITALS: BP 99/53
[2018-06-08] MEDS ORDERED: DIPH25CA58 PO (03:56)
[2018-06-08] MEDS ORDERED: ACET500T68 PO (03:56)
[2018-06-08] MEDS ORDERED: IBUP-1007 PO (03:56)
[2018-06-08] MEDS ORDERED: CYCL10TA2 PO (03:56)
[2018-06-08 07:59] VITALS: BP 117/77
[2018-06-08] MEDS ORDERED: oxyCODONE/APAP 5/325 1 TAB TABLET PO PRN (08:30)
[2018-06-08] MEDS ORDERED: KETOROLAC 15 MG/ML VIAL. IV PRN (08:30)
[2018-06-08 11:25] VITALS: BP 114/72
[2018-06-08 15:10] VITALS: BP 111/74
--- NOTE | 2018-06-08 17:12 | PDOC ---
SURGICAL PROGRESS NOTE Subjective Pt. 1 wk s/p TVH, Anterior Repair and Bladder Sling reported to ED with c/o Left groin pain unrelieved with pain medication. Pain uncontrolled in ED and admitted for observation for pain management. Pt. with UTI, but no evidence of systemic infection or pelvic hematoma. She is able to empty bladder completely and no difficulty with voiding. Vital Signs Vital Signs Date Time Temp Pulse Resp B/P (MAP) Pulse Ox O2 Delivery O2 Flow Rate FiO2 06/08/18 15:10 98.0 63 20 111/74 (86) 98 Room Air 98.0 I&O Intake and Output 06/08/18 07:01 Intake Total 300 ml Balance 300 ml Intake Oral 300 ml PATIENT HAS A BISHOP: No General: Alert, Oriented X3, Cooperative HEENT: Atraumatic Lungs: Clear to auscultation Heart: Regular rate Abdomen: Normal bowel sounds, Soft, No masses, Other (Left groin tenderness; Pelvic exam: no evidence of infection, hematoma, wound break down or nerve entrapment.) Neuro: Normal gait, Reflexes 2+ Psych/Mental Status: Mental status NL Labs Laboratory Tests Test 06/07/18 20:16 06/07/18 23:10 White Blood Count 9.1 x10^3/uL (4.0-11.0) Red Blood Count 3.72 x10^6/uL (3.50-5.40) Hemoglobin 11.4 g/dL (12.0-15.5) Hematocrit 33.8 % (36.0-47.0) Mean Corpuscular Volume 91 fL (79-100) Mean Corpuscular Hemoglobin 31 pg (25-35) Mean Corpuscular Hemoglobin Concent 34 g/dL (31-37) Red Cell Distribution Width 13.2 % (11.5-14.5) Platelet Count 372 x10^3/uL (140-400) Neutrophils (%) (Auto) 54 % (31-73) Lymphocytes (%) (Auto) 28 % (24-48) Monocytes (%) (Auto) 7 % (0-9) Eosinophils (%) (Auto) 10 % (0-3) Basophils (%) (Auto) 1 % (0-3) Neutrophils # (Auto) 4.9 x10^3uL (1.8-7.7) Lymphocytes # (Auto) 2.5 x10^3/uL (1.0-4.8) Monocytes # (Auto) 0.6 x10^3/uL (0.0-1.1) Eosinophils # (Auto) 0.9 x10^3/uL (0.0-0.7) Basophils # (Auto) 0.1 x10^3/uL (0.0-0.2) Sodium Level 140 mmol/L (136-145) Potassium Level 3.8 mmol/L (3.5-5.1) Chloride Level 104 mmol/L (98-107) Carbon Dioxide Level 25 mmol/L (21-32) Anion Gap 11 (6-14) Blood Urea Nitrogen 16 mg/dL (7-20) Creatinine 0.8 mg/dL (0.6-1.0) Estimated GFR (Cockcroft-Gault) 99.4 BUN/Creatinine Ratio 20 (6-20) Glucose Level 104 mg/dL (70-99) Calcium Level 9.2 mg/dL (8.5-10.1) Total Bilirubin 0.3 mg/dL (0.2-1.0) Aspartate Amino Transf (AST/SGOT) 22 U/L (15-37) Alanine Aminotransferase (ALT/SGPT) 43 U/L (14-59) Alkaline Phosphatase 57 U/L (46-116) Total Protein 7.8 g/dL (6.4-8.2) Albumin 3.7 g/dL (3.4-5.0) Albumin/Globulin Ratio 0.9 (1.0-1.7) Urine Collection Type Unknown Urine Color Yellow Urine Clarity Clear Urine pH 6.5 Urine Specific [place] 1.025 Urine Protein Negative mg/dL (NEG-TRACE) Urine Glucose (UA) Negative mg/dL (NEG) Urine Ketones (Stick) Negative mg/dL (NEG) Urine Blood Moderate (NEG) Urine Nitrite Negative (NEG) Urine Bilirubin Negative (NEG) Urine Urobilinogen Dipstick 1.0 mg/dL (0.2 mg/dL) Urine Leukocyte Esterase Moderate (NEG) Urine RBC 1-2 /HPF (0-2) Urine WBC >40 /HPF (0-4) Urine Squamous Epithelial Cells Mod /LPF Urine Bacteria Moderate /HPF (0-FEW) Urine Mucus Marked /LPF Laboratory Tests Test 06/07/18 20:06/07/18 23:10 White Blood Count 9.1 x10^3/uL (4.0-11.0) Red Blood Count 3.72 x10^6/uL (3.50-5.40) Hemoglobin 11.4 g/dL (12.0-15.5) Hematocrit 33.8 % (36.0-47.0) Mean Corpuscular Volume 91 fL (79-100) Mean Corpuscular Hemoglobin 31 pg (25-35) Mean Corpuscular Hemoglobin Concent 34 g/dL (31-37) Red Cell Distribution Width 13.2 % (11.5-14.5) Platelet Count 372 x10^3/uL (140-400) Neutrophils (%) (Auto) 54 % (31-73) Lymphocytes (%) (Auto) 28 % (24-48) Monocytes (%) (Auto) 7 % (0-9) Eosinophils (%) (Auto) 10 % (0-3) Basophils (%) (Auto) 1 % (0-3) Neutrophils # (Auto) 4.9 x10^3uL (1.8-7.7) Lymphocytes # (Auto) 2.5 x10^3/uL (1.0-4.8) Monocytes # (Auto) 0.6 x10^3/uL (0.0-1.1) Eosinophils # (Auto) 0.9 x10^3/uL (0.0-0.7) Basophils # (Auto) 0.1 x10^3/uL (0.0-0.2) Sodium Level 140 mmol/L (136-145) Potassium Level 3.8 mmol/L (3.5-5.1) Chloride Level 104 mmol/L (98-107) Carbon Dioxide Level 25 mmol/L (21-32) Anion Gap 11 (6-14) Blood Urea Nitrogen 16 mg/dL (7-20) Creatinine 0.8 mg/dL (0.6-1.0) Estimated GFR (Cockcroft-Gault) 99.4 BUN/Creatinine Ratio 20 (6-20) Glucose Level 104 mg/dL (70-99) Calcium Level 9.2 mg/dL (8.5-10.1) Total Bilirubin 0.3 mg/dL (0.2-1.0) Aspartate Amino Transf (AST/SGOT) 22 U/L (15-37) Alanine Aminotransferase (ALT/SGPT) 43 U/L (14-59) Alkaline Phosphatase 57 U/L (46-116) Total Protein 7.8 g/dL (6.4-8.2) Albumin 3.7 g/dL (3.4-5.0) Albumin/Globulin Ratio 0.9 (1.0-1.7) Urine Collection Type Unknown Urine Color Yellow Urine Clarity Clear Urine pH 6.5 Urine Specific [place] 1.025 Urine Protein Negative mg/dL (NEG-TRACE) Urine Glucose (UA) Negative mg/dL (NEG) Urine Ketones (Stick) Negative mg/dL (NEG) Urine Blood Moderate (NEG) Urine Nitrite Negative (NEG) Urine Bilirubin Negative (NEG) Urine Urobilinogen Dipstick 1.0 mg/dL (0.2 mg/dL) Urine Leukocyte Esterase Moderate (NEG) Urine RBC 1-2 /HPF (0-2) Urine WBC >40 /HPF (0-4) Urine Squamous Epithelial Cells Mod /LPF Urine Bacteria Moderate /HPF (0-FEW) Urine Mucus Marked /LPF Problem List Problems Medical Problems: (1) Urinary tract infection Status: Acute Assessment/Plan A: Left groin pain s/p surgery 1 wk ago P: Pain management. F/u in 1 wk in clinic. TONY VERMA Jr, MD Jun 08, 2018 17:12
== END 2018-06-08 19:00 | disposition home or self-care (01) ==
LOC: ER 19:53 → 6 SOUTH 22:30
PROVIDERS: ADMIT Obstetrics & Gynecology; ATTEND Obstetrics & Gynecology
DX: N39.0 Urinary tract infection, site not specified (principal); F32.9 Major depressive disorder, single episode, unspecified; Z90.710 Acquired absence of both cervix and uterus
CPT/HCPCS: 36415; 74177; 80053; 81001; 85025; 87086; 93971; 96372; 96374; 96375; 96376; 99284; G0378; J0696; J1170; J1885; J2270; J2405; J3010; J7030; Q9967; G0379

== ENCOUNTER 2018-08-04 09:40 | Emergency (ER) | payer BC ==
[~2018-08-04] VITALS: Ht 157.5 cm; Wt 94.3 kg
[~2018-08-04 09:40] MED LIST changes: +ACET500T68 PO; +CYCL10TA2 PO; +DIPH25CA58 PO; +IBUP-1007 PO
[2018-08-04 09:50] VITALS: BP 121/85
[2018-08-04] MEDS ORDERED: ACETAMINOPHEN 500 MG TABLET PO ONE (10:15)
[2018-08-04] MEDS ORDERED: AMOX500C PO (10:26)
--- NOTE | 2018-08-04 10:26 | PHYS DOC ---
Past Medical History Past Medical History: Depression, Hypotension, Ovarian Cyst, Pneumonia Additional Past Medical Histor: ANTIPHOSPHOLIPID ANTIBODY DISORDER, PINEAL GLAND CYST, 5 MISCARRIAGES, Past Surgical History: Other Additional Past Surgical Histo: HERNIA SX Alcohol Use: Rarely Drug Use: None Adult General Chief Complaint Chief Complaint: SORE THROAT HPI HPI Patient is a 33 year old female who presents with cough and throat swollen with sore throat that started yesterday. Patient states she isn't taking any medications for. Patient states her son was just diagnosed with strep. Review of Systems Review of Systems Constitutional: Denies fever or chills [] Eyes: Denies change in visual acuity, redness, or eye pain [] HENT: Denies nasal congestion or sore throat [] Respiratory: Denies cough or shortness of breath [] Cardiovascular: No additional information not addressed in HPI [] GI: Denies abdominal pain, nausea, vomiting, bloody stools or diarrhea [] : Denies dysuria or hematuria [] Musculoskeletal: Denies back pain or joint pain [] Integument: Denies rash or skin lesions [] Neurologic: Denies headache, focal weakness or sensory changes [] Endocrine: Denies polyuria or polydipsia [] All other systems were reviewed and found to be within normal limits, except as documented in this note. Current Medications Current Medications Current Medications Medications (Trade) Dose Ordered Sig/Olivia Start Time Stop Time Status Last Admin Dose Admin Acetaminophen (Tylenol) 1,000 mg 1X ONCE 08/04/18 10:15 08/04/18 10:16 DC 08/04/18 10:14 1,000 MG Allergies Allergies Allergies Coded Allergies Type Severity Reaction Last Updated Verified shellfish derived Allergy Severe THROAT SWELLING 06/01/18 Yes Physical Exam Physical Exam Constitutional: Well developed, well nourished, no acute distress, non-toxic appearance. [] HENT: Normocephalic, atraumatic, bilateral external ears normal, oropharynx moist, bilateral tonsil oral exudates, nose normal. [] Eyes: PERRLA, EOMI, conjunctiva normal, no discharge. [] Neck: Normal range of motion, no tenderness, supple, no stridor. [] Cardiovascular:Heart rate regular rhythm, no murmur [] Lungs & Thorax: Bilateral breath sounds clear to auscultation [] Abdomen: Bowel sounds normal, soft, no tenderness, no masses, no pulsatile masses. [] Skin: Warm, dry, no erythema, no rash. [] Back: No tenderness, no CVA tenderness. [] Extremities: No tenderness, no cyanosis, no clubbing, ROM intact, no edema. [] Neurologic: Alert and oriented X 3, normal motor function, normal sensory function, no focal deficits noted. [] Psychologic: Affect normal, judgement normal, mood normal. [] Current Patient Data Vital Signs Vital Signs Date Time Temp Pulse Resp B/P (MAP) Pulse Ox O2 Delivery O2 Flow Rate FiO2 08/04/18 09:50 99.2 93 18 121/85 (97) 97 Room Air 99.2 EKG EKG [] Radiology/Procedures Radiology/Procedures [] Course & Med Decision Making Course & Med Decision Making Patient is a 33 year old female who presents with cough and throat swollen with sore throat that started yesterday. Patient states she isn't taking any medications for. Patient states her son was just diagnosed with strep. Alert and oriented. Vital signs within normal limits. Speaks in full clear senses. Denies shortness of air, chest pain, abdominal pain, nausea vomiting or diarrhea. Patient's throat is reddened, bilateral tonsil swelling with exudates. Patient is eating and drinking without complication. Patient is given Tylenol for her pain. Lungs are clear to auscultation in all lobes. Heart rate regular without murmur. Bilateral tympanic membranes are pearly white. Strep positive. Patient should drink plenty of fluids and take medication as prescribed. Dragon Disclaimer Dragon Disclaimer This electronic medical record was generated, in whole or in part, using a voice recognition dictation system. Departure Departure Impression: Primary Impression: Strep throat Disposition: 01 HOME, SELF-CARE Condition: STABLE Referrals: MARVA MITTAL MD (PCP) Patient Instructions: Strep Throat Additional Instructions: Follow up with primary care. Drink plenty of fluids. Take Tylenol or Ibuprofen for pain or fever. Scripts Amoxicillin (AMOXICILLIN) 500 Mg Capsule 1 CAP PO BID for 10 Days, #20 CAP Prov: KALEB MIRANDA APRN 08/04/18 KALEB MIRANDA APRN Aug 04, 2018 10:26
== END 2018-08-04 10:38 | disposition home or self-care (01) ==
LOC: ER 09:40
DX: J02.0 Streptococcal pharyngitis (principal); B95.5 Unspecified streptococcus as the cause of diseases classified elsewhere; F32.9 Major depressive disorder, single episode, unspecified; I10 Essential (primary) hypertension; Z91.013 Allergy to seafood
CPT/HCPCS: 87880; 99283

== ENCOUNTER 2018-08-06 10:43 | Emergency (ER) | payer BC ==
[~2018-08-06] VITALS: Ht 157.5 cm; Wt 94.3 kg
[~2018-08-06 10:43] MED LIST changes: +AMOX500C PO
[2018-08-06 10:51] VITALS: BP 127/79
[2018-08-06] MEDS ORDERED: IBUPROFEN 600 MG TABLET. PO ONE (11:00)
[2018-08-06] MEDS ORDERED: DEXAMETHASONE SOD PHOS 20 MG/5 ML VIAL. PO ONE (11:00)
[2018-08-06] MEDS ORDERED: PENICILLIN G BENZATHINE LA 1,200,000 UNIT/2 ML DISP.SYRIN. IM ONE (11:00)
--- NOTE | 2018-08-06 11:08 | PHYS DOC ---
Past Medical History Past Medical History: Depression, Hypotension, Ovarian Cyst, Pneumonia Additional Past Medical Histor: ANTIPHOSPHOLIPID ANTIBODY DISORDER, PINEAL GLAND CYST, 5 MISCARRIAGES, Past Surgical History: Other Additional Past Surgical Histo: HERNIA SX Alcohol Use: Rarely Drug Use: None Adult General Chief Complaint Chief Complaint: SORE THROAT HPI HPI 33-year-old female who returns to ER after being evaluated 2 days ago for strep- like illness. Patient's son had tested positive for strep and patient came to the ER for treatment. Patient was placed on amoxicillin and she reports her symptoms have not improved. Patient states she has had sore throat with increased throat swelling. Patient has been able to swallow medications. Patient denies abdominal pain, nausea or vomiting, earache, or cough. She reports she has felt feverish. She reports she has been taking amoxicillin since last ER visit. She reports she took Nyquil this morning. Review of Systems Review of Systems Constitutional: Reports feeling feverish w/generalized fatigue Eyes: Denies change in visual acuity, redness, or eye pain [] HENT: Denies nasal congestion. Reports sore/swollen throat Respiratory: Denies cough or shortness of breath [] Cardiovascular: Denies CP/palpitations GI: Denies abdominal pain, nausea, vomiting, bloody stools or diarrhea [] : Denies urinary sxs Musculoskeletal: Denies back pain or joint pain [] Integument: Denies rash or skin lesions [] Neurologic: Denies headache, focal weakness or sensory changes [] All other systems were reviewed and found to be within normal limits, except as documented in this note. Current Medications Current Medications Current Medications Medications (Trade) Dose Ordered Sig/Olivia Start Time Stop Time Status Last Admin Dose Admin Dexamethasone Sodium Phosphate (Decadron) 10 mg 1X ONCE 08/06/18 11:00 08/06/18 11:01 DC 08/06/18 11:09 10 MG Ibuprofen (Motrin) 600 mg 1X ONCE 08/06/18 11:00 08/06/18 11:01 DC 08/06/18 11:10 600 MG Penicillin G Benzathine (Bicillin L-A) 1,200,000 unit 1X ONCE 08/06/18 11:00 08/06/18 11:01 DC 08/06/18 11:10 1,200,000 UNIT Allergies Allergies Allergies Coded Allergies Type Severity Reaction Last Updated Verified shellfish derived Allergy Severe THROAT SWELLING 06/01/18 Yes Physical Exam Physical Exam Constitutional: Well developed, well nourished, no acute distress, non-toxic appearance. [] HENT: Normocephalic, atraumatic, bilateral ears w/erythema at TM without bulging /perforation- no purulent drainage- external canals NL bilat. oropharynx moist, pharyngeal/tonsillar erythema- with bilat. tonsillar swelling and exudate- uvula midline, nose normal. [] Eyes: Pupils equal, conjunctiva normal, no discharge. [] Neck: Normal range of motion, no tenderness, supple, no stridor. Tender bilat. neck tender submandibular nodes with adenopathy. Trachea midline Cardiovascular: Heart rate regular rhythm, no murmur [] Lungs & Thorax: Bilateral breath sounds clear to auscultation. Resp. equal/ nonlabored Abdomen: Bowel sounds normal, soft, no tenderness Skin: Warm, dry, no erythema, no rash. [] Back: No tenderness, no CVA tenderness. [] Extremities: No tenderness, no cyanosis, no clubbing, ROM intact, no edema. [] Neurologic: Alert and oriented X 3, normal motor function, normal sensory function, no focal deficits noted. [] Psychologic: Affect normal, judgement normal, mood normal. [] Current Patient Data Vital Signs Vital Signs Date Time Temp Pulse Resp B/P (MAP) Pulse Ox O2 Delivery O2 Flow Rate FiO2 08/06/18 10:51 98.5 108 18 127/79 (95) 97 Room Air 98.5 EKG EKG [] Radiology/Procedures Radiology/Procedures [] Course & Med Decision Making Course & Med Decision Making [] Dragon Disclaimer Dragon Disclaimer This electronic medical record was generated, in whole or in part, using a voice recognition dictation system. Departure Departure Impression: Primary Impression: Pharyngitis Disposition: 01 HOME, SELF-CARE Condition: STABLE Referrals: MARVA MITTAL MD (PCP) Patient Instructions: Viral and Bacterial Pharyngitis Additional Instructions: Tylenol and ibuprofen as directed on container for pain. Drink plenty of fluids. Follow-up with primary doctor with concerns or if symptoms persist. You were given a penicillin shot while in the Emergency Department you should not continue the amoxicillin prescription at home. Scripts Prednisone (PREDNISONE) 20 Mg Tablet 2 TAB PO DAILY, #8 TAB 0 Refills Start on 08/07/18 Prov: JENNY HOUSE APRN 08/06/18 JENNY HOUSE APRN Aug 06, 2018 11:08
[2018-08-06] MEDS ORDERED: PRED20TA PO (11:33)
== END 2018-08-06 11:43 | disposition home or self-care (01) ==
LOC: ER 10:43
DX: J02.9 Acute pharyngitis, unspecified (principal); F32.9 Major depressive disorder, single episode, unspecified; Z91.013 Allergy to seafood
CPT/HCPCS: 96372; 99283; J0561; J1100

== ENCOUNTER 2019-08-10 11:20 | Emergency (ER) | payer BC ==
[~2019-08-10] VITALS: Ht 157.5 cm; Wt 94.5 kg
[~2019-08-10 11:20] MED LIST changes: +MAGN296S68 PO; -MAGN296S9 PO
--- NOTE | 2019-08-10 11:42 | PHYS DOC ---
Past Medical History Past Medical History: Depression, Hypotension, Ovarian Cyst, Pneumonia Additional Past Medical Histor: ANTIPHOSPHOLIPID ANTIBODY DISORDER, PINEAL GLAND CYST, 5 MISCARRIAGES, Past Surgical History: Other Additional Past Surgical Histo: HERNIA SX Smoking Status: Never Smoker Alcohol Use: Rarely Drug Use: None Adult General Chief Complaint Chief Complaint: LOWER EXT PAIN [facility] HPI Patient is a 34 year old female with antiphospholipid syndrome who presents secondary to concern for blood clot in her left lower extremity. She has pain on the posterior aspect of her left thigh which is similar to presentation from her previous blood clot. She states that she has had multiple blood clots while she has been and has been on Lovenox in the past. Currently takes a baby aspirin daily and her pain started this morning. She has had a hysterectomy. Review of Systems Review of Systems All other ROS is negative unless otherwise stated in HPI Allergies Allergies Allergies Coded Allergies Type Severity Reaction Last Updated Verified shellfish derived Allergy Severe THROAT SWELLING 06/01/18 Yes Physical Exam Physical Exam See above Constitutional: Well developed, well nourished, no acute distress, non-toxic appearance. [] HENT: Normocephalic, atraumatic, bilateral external ears normal, oropharynx moist, no oral exudates, nose normal. [] Eyes: PERRLA, EOMI, conjunctiva normal, no discharge. [] Neck: Normal range of motion, no tenderness, supple, no stridor. [] Cardiovascular:Heart rate regular rhythm, no murmur [] Lungs & Thorax: Bilateral breath sounds clear to auscultation [] Abdomen: Bowel sounds normal, soft, no tenderness, no masses, no pulsatile masses. [] Skin: Warm, dry, no erythema, no rash. [] Back: No tenderness, no CVA tenderness. [] Extremities: No tenderness, no cyanosis, no clubbing, ROM intact, no edema. No appreciable warmth or redness. Some tenderness to palpation of the posterior aspect of the left thigh Neurologic: Alert and oriented X 3, normal motor function, normal sensory function, no focal deficits noted. [] Psychologic: Affect normal, judgement normal, mood normal. [] Current Patient Data Vital Signs Vital Signs Date Time Temp Pulse Resp B/P (MAP) Pulse Ox O2 Delivery O2 Flow Rate FiO2 08/10/19 11:28 97.9 100 20 140/94 (109) 98 Room Air 97.9 EKG EKG [] Radiology/Procedures Radiology/Procedures Examination: VENOUS LOWER EXTREMITY LEFT History: Lower extremity pain Comparison/Correlation: None FINDINGS: Left lower extremity duplex venous ultrasound exam was performed. Grayscale, color Doppler, and spectral Doppler imaging was performed. Compression and augmentation was performed. The left common femoral vein, superficial femoral vein, popliteal vein, and greater saphenous vein are normal with no evidence of deep venous thrombus. Normal compressibility and augmentation is evident. Visualized left calf veins are unremarkable. Left groin lymph node is visualized and normal in appearance. IMPRESSION: Normal left lower extremity duplex ultrasound exam. No evidence of deep venous thrombus involving the left lower extremity.[] Course & Med Decision Making Course & Med Decision Making Pertinent Labs and Imaging studies reviewed. (See chart for details) 1142: Patient seen for antiphospholipid syndrome and concern for DVT with history of antiphospholipid syndrome and history of DVTs currently on aspirin therapy. We'll get a ultrasound for further evaluation. Dragon Disclaimer Dragon Disclaimer This electronic medical record was generated, in whole or in part, using a voice recognition dictation system. Departure Departure Impression: Primary Impression: Pain in superior left lower extremity Additional Impression: History of DVT (deep vein thrombosis) Disposition: 01 HOME, SELF-CARE Condition: STABLE Referrals: MARVA MITTAL MD (PCP) Patient Instructions: Deep Vein Thrombosis Problem Qualifiers CODEY THOMAS DO Aug 10, 2019 11:42
--- NOTE | 2019-08-10 12:27 | RAD ---
Examination: VENOUS LOWER EXTREMITY LEFT History: Lower extremity pain Comparison/Correlation: None FINDINGS: Left lower extremity duplex venous ultrasound exam was performed. Grayscale, color Doppler, and spectral Doppler imaging was performed. Compression and augmentation was performed. The left common femoral vein, superficial femoral vein, popliteal vein, and greater saphenous vein are normal with no evidence of deep venous thrombus. Normal compressibility and augmentation is evident. Visualized left calf veins are unremarkable. Left groin lymph node is visualized and normal in appearance. IMPRESSION: Normal left lower extremity duplex ultrasound exam. No evidence of deep venous thrombus involving the left lower extremity. Electronically signed by: Jose R Devine MD (08/10/2019 12:24 PM) [facility]
[2019-08-10 12:33] VITALS: BP 105/55
== END 2019-08-10 12:48 | disposition home or self-care (01) ==
LOC: ER 11:20
DX: M79.652 Pain in left thigh (principal); F32.9 Major depressive disorder, single episode, unspecified; I95.9 Hypotension, unspecified; Z98.890 Other specified postprocedural states; Z86.718 Personal history of other venous thrombosis and embolism; Z91.013 Allergy to seafood
CPT/HCPCS: 93971; 99284

== ENCOUNTER 2019-09-07 12:43 | Emergency (ER) | payer BC ==
[~2019-09-07] VITALS: Ht 157.5 cm; Wt 92.2 kg
[2019-09-07 12:45] VITALS: BP 139/85
[2019-09-07] MEDS ORDERED: LIDOCAINE 2% VISCOUS 15 ML SOLUTION. SWSW STA (13:25)
--- NOTE | 2019-09-07 13:25 | PHYS DOC ---
Past Medical History Past Medical History: Depression, Hypotension, Ovarian Cyst, Pneumonia, Other Additional Past Medical Histor: ANTIPHOSPHOLIPID ANTIBODY DISORDER, PINEAL GLAND CYST, 5 MISCARRIAGES, Past Surgical History: Hysterectomy, Other Additional Past Surgical Histo: HERNIA SX Smoking Status: Never Smoker Alcohol Use: Rarely Drug Use: None Adult General Chief Complaint Chief Complaint: FEVER HPI HPI Patient is a 34 year old female who presents with cough, sore throat, shortness of breath that is been ongoing for 4 days. The patient is all her kids are sick as well and that her baby just got over this after being sick for 2 weeks. Fevers been as high as 103 F. She has been using DayQuil at home. Complete ROS were reviewed and found to be within normal limits, except as documented in the HPI Current Medications Current Medications Current Medications Medications (Trade) Dose Ordered Sig/Olivia Start Time Stop Time Status Last Admin Dose Admin Lidocaine HCl (Viscous Lidocaine) 15 ml 1X STAT 09/07/19 13:25 09/07/19 13:26 DC Allergies Allergies Allergies Coded Allergies Type Severity Reaction Last Updated Verified shellfish derived Allergy Severe THROAT SWELLING 06/01/18 Yes Physical Exam Physical Exam Constitutional: Well developed, well nourished, no acute distress, non-toxic appearance. [] HENT: Normocephalic, atraumatic, bilateral external ears normal, oropharynx moist, tonsils are 2+/4 with no oral exudates, nose normal. Eyes: PERRLA, EOMI, conjunctiva normal, no discharge. [] Neck: Normal range of motion, no tenderness, supple, no stridor. [] Cardiovascular:Heart rate regular rhythm, no murmur [] Lungs & Thorax: Bilateral breath sounds clear to auscultation [] Neurologic: Alert and oriented X 3, normal motor function, normal sensory function, no focal deficits noted. Psychologic: Affect normal, judgement normal, mood normal. [] Current Patient Data Vital Signs Vital Signs Date Time Temp Pulse Resp B/P (MAP) Pulse Ox O2 Delivery O2 Flow Rate FiO2 09/07/19 12:45 98.2 79 18 139/85 (103) 99 Room Air 98.2 Lab Values Laboratory Tests Test 09/07/19 12:55 Influenza Type A Antigen Negative (NEGATIVE) Influenza Type B Antigen Negative (NEGATIVE) Group A Streptococcus Rapid Negative (NEGATIVE) EKG EKG [] Radiology/Procedures Radiology/Procedures [][facility] [address] [place] [address] IMAGING REPORT Signed PATIENT: NICK CARTWRIGHT ACCOUNT: [id number] : 1985 LOCATION: ER AGE: 34 SEX: F EXAM STATUS: PRE ER ORD. PHYSICIAN: CIERRA NI APRN REASON: shortness of breath, fever PROCEDURE: PORTABLE CHEST 1V EXAM: Chest, single view. HISTORY: Shortness of breath. Fever. COMPARISON: None. FINDINGS: A frontal view of the chest is obtained. There is no infiltrate, pleural effusion or pneumothorax. The heart is normal in size. IMPRESSION: No acute pulmonary finding. Electronically signed by: Tabby Nath MD (09/07/2019 1:46 PM) [id number] DICTATED and SIGNED BY: TABBY NATH MD DATE: 09/07/19 1346 Course & Med Decision Making Course & Med Decision Making Pertinent Labs and Imaging studies reviewed. (See chart for details) Strep test is negative, will get a chest x-ray and then DC home to be put under quarantine for COVID-19. Dragon Disclaimer Dragon Disclaimer This electronic medical record was generated, in whole or in part, using a voice recognition dictation system. Departure Departure Impression: Primary Impression: Viral syndrome Disposition: 01 HOME, SELF-CARE Condition: STABLE Referrals: UNKNOWN PCP NAME (PCP) Patient Instructions: Viral Syndrome Additional Instructions: Thank you for visiting [facility]. We appreciate you trusting us with your care. If any additional problems come up don't hesitate to return to visit us. Please follow up with your primary care provider so they can plan additional care if needed and know about the problem that you had. If symptoms worsen come back to the Emergency Department. Any concerning symptoms that start such as chest pain, shortness of air, weakness or numbness on one side of the body, running high fevers or any other concerning symptoms return to the ER. You have a viral syndrome which may include symptoms like muscle aches, fevers, chills, runny nose, cough, sneezing, sore throat, vomiting, or diarrhea. One of the potential viruses that you may have is SARS-CoV-2, the virus that causes COVID-19, also known as the Coronavirus. You are just as likely to have a different viral infection such as the common cold, flu, etc. Most patients with the Coronavirus have mild symptoms and recover on their own. Resting, staying hydrated, and sleep from known cases can be helpful. As of todays visit, you are well enough to go home and treat your symptoms with oral fluids and over the counter medications. Coronavirus testing is not performed on most people with mild symptoms who are being discharged from the emergency department. If Coronavirus testing was performed the results will not be available for possibly up to 2-3 days. If your result is positive you will be contacted. Please follow the following precautions at home: 1) Stay home except to get medical care. 2) As advised by the CDC we recommend you stay in your home and minimize contact with other people. We do not want you to spread the infection. 3) Those who are older or have significant medical issues may have more severe symptoms from this infection. We recommend self-isolation,FOR AT LEAST 7 DAYS after your 1st day of symptoms. AFTER you feel better please wait AT LEAST ANOTHER WEEK before returning to regular activities and being around other pe ople! 4) IF you become sicker and have difficulty breathing, chest pain, unable to eat/drink, severe vomiting, diarrhea, or weakness you may need to return to the Emergency Department. 5) You should restrict activities outside your home, except for getting medical care. DO NOT go to work, school, or public areas. Avoid using public transportation, ride sharing, or taxis. 6) Separate yourself from other people in your home. You should use a separate bathroom if possible. 7) Avoid sharing personal household items such as dishes, cups, eating utensils, towels, etc. 8) Clean all high touch surfaces every day (door knobs, counter tops, etc). Use a household cleaning spray or wipe per label instructions. 9) Clean your hands often. Wash your hands with soap and water for at least 20 seconds. 10) Cover your mouth and nose with a tissue when you cough or sneeze. 11) Throw used tissues in a trash can and immediately wash your hands. For additional resources please visit the CDC website or the [facility] ([phone]). CIERRA NI APRN Sep 07, 2019 13:25
--- NOTE | 2019-09-07 13:49 | RAD ---
EXAM: Chest, single view. HISTORY: Shortness of breath. Fever. COMPARISON: None. FINDINGS: A frontal view of the chest is obtained. There is no infiltrate, pleural effusion or pneumothorax. The heart is normal in size. IMPRESSION: No acute pulmonary finding. Electronically signed by: Tabby Lubin MD (09/07/2019 1:46 PM) [email or web address]
[2019-09-07 14:04] LABS: INFLUENZA A PATIENT NEGATIVE (NEGATIVE); INFLUENZA B PATIENT NEGATIVE (NEGATIVE)
== END 2019-09-07 15:00 | disposition home or self-care (01) ==
LOC: ER 12:43
DX: B34.9 Viral infection, unspecified (principal); R06.02 Shortness of breath; R05 Cough; R50.9 Fever, unspecified; F32.9 Major depressive disorder, single episode, unspecified; I10 Essential (primary) hypertension; Z90.710 Acquired absence of both cervix and uterus; Z98.890 Other specified postprocedural states; Z91.013 Allergy to seafood
CPT/HCPCS: 71045; 87070; 87804; 87880; 99284